=== PATIENT | male | born 1985 | race Caucasian/White ===

== ENCOUNTER 2016-10-13 01:57 | Emergency (ER) | payer OTHER ==
[2016-10-13 05:46] LABS: HEMOGLOBIN 16.4 gm/dl (14.0-17.5); RED BLOOD COUNT 4.93 M/UL (4.20-5.50); WHITE BLOOD COUNT 11.2 K/UL (4.5-11.0)
[2016-10-13 06:00] LABS: BUN/CREATININE RATIO 14 (0-10)
== END 2016-10-13 06:39 | disposition home or self-care (01) ==
LOC: ER1 01:57
PROVIDERS: Student in an Organized Health Care Education/Training Program
DX: K64.4 Residual hemorrhoidal skin tags (principal); R74.8 Abnormal levels of other serum enzymes
CPT/HCPCS: 36415; 80053; 82272; 83690; 85025; 85610; 85730; 99283

== ENCOUNTER 2020-06-19 17:24 | Emergency (ER) | payer BC, OTHER ==
[~2020-06-19 17:24] MED LIST: IBUPROFEN600 MG PO; OMNICEF 300 MG300 MG PO; PRILOSEC OTC20 MG PO; TESSALON PERLE100 MG PO; VENTOLIN HFA 66.7 GM INH
[2020-06-19] MEDS ORDERED: BROMFED DM COU473 ML PO (20:09)
[2020-06-19] MEDS ORDERED: IBU800 MG PO (20:09)
== END 2020-06-19 20:17 | disposition home or self-care (01) ==
LOC: ER1 17:24
DX: U07.1 COVID-19 (principal); F17.210 Nicotine dependence, cigarettes, uncomplicated
CPT/HCPCS: 71045; 87081; 87880; 99285; U0003

== ENCOUNTER 2020-08-15 16:21 | Emergency (ER) | payer OTHER ==
[~2020-08-15 16:21] MED LIST changes: +BROMFED DM COU473 ML PO; +IBU800 MG PO
[2020-08-15] MEDS ORDERED: IBUPROFEN600 MG PO (17:59)
== END 2020-08-15 18:11 | disposition home or self-care (01) ==
LOC: ER1 16:21
DX: S60.211A Contusion of right wrist, initial encounter (principal); F17.210 Nicotine dependence, cigarettes, uncomplicated; W01.0XXA Fall on same level from slipping, tripping and stumbling without subsequent striking against object, initial encounter
CPT/HCPCS: 29125; 73110; 99283

== ENCOUNTER 2020-11-04 10:09 | Emergency (ER) | payer OTHER | END 2020-11-04 11:04 | disposition home or self-care (01) | LOC: ER1 10:09 | DX: Z02.79 Encounter for issue of other medical certificate (principal); F17.200 Nicotine dependence, unspecified, uncomplicated | CPT/HCPCS: 99283 ==